=== PATIENT | female | born 1980 | race Caucasian/White ===

== ENCOUNTER 2016-09-19 09:13 | Inpatient (IN) ==
[2016-09-19] MEDS ORDERED: PEPCID IV PRN (22:00)
[2016-09-19] MEDS ORDERED: TYLENOL PO PRN (22:00)
[2016-09-19] MEDS ORDERED: ZOFRAN IV PRN (22:00)
[2016-09-19] MEDS ORDERED: STADOL IV PRN ×2 (22:00)
[2016-09-19] MEDS ORDERED: AMBIEN PO PRN (22:00)
[2016-09-19] MEDS ORDERED: PEPCID PO PRN (22:00)
[2016-09-19] MEDS ORDERED: BRETHINE SUBQ PRN (22:00)
[2016-09-19] MEDS ORDERED: PITOCIN 30 UNITS/LR 30 UNITS/500 ML IV.SOLN IV SCH (22:00)
[2016-09-19] MEDS ORDERED: AMPICILLIN 2 GM/NS 2 GM/100 ML IVPB IV ONE (22:00)
[2016-09-19] MEDS ORDERED: KEFZOL 1 GM/D5W 1 GM/50 ML IVPB IV PRN (22:00)
[2016-09-19] MEDS: LR 1,000 ML IV ONE (22:52)
[2016-09-19 23:15] LABS: URINE SOURCE VOIDED
[2016-09-19 23:15] LABS: MANUAL DIFF NEEDED? NO
[2016-09-19] MEDS: CYTOTEC PO ONE ×2 (23:25→23:26)
[2016-09-19 23:27] LABS: BILIRUBIN URINE NEGATIVE (NEGATIVE); BLOOD URINE NEGATIVE (NEGATIVE); CLARITY CLEAR (CLEAR); COLOR YELLOW; GLUCOSE URINE NEGATIVE (NEGATIVE); LEUKOCYTES URINE NEGATIVE (NEGATIVE); NITRITE URINE NEGATIVE (NEGATIVE); PROTEIN URINE NEGATIVE (NEGATIVE); UR AMPHETAMINES QUAL NONE DETECTED (NONE DETECT); UR BARBITUATES QUAL NONE DETECTED (NONE DETECT); UR BENZODIAZEPIN QUAL NONE DETECTED (NONE DETECT); UR CANNABINOIDS QUAL NONE DETECTED (NONE DETECT); UR COCAINE QUAL NONE DETECTED (NONE DETECT); UR MDMA QUAL NONE DETECTED (NONE DETECT); UR METHADONE QUAL NONE DETECTED (NONE DETECT); UR METHAMPHETAMINE QUAL NONE DETECTED (NONE DETECT); UR OPIATES QUAL NONE DETECTED (NONE DETECT); UR OXYCODONE QUAL NONE DETECTED (NONE DETECT); UR PCP QUAL NONE DETECTED (NONE DETECT); UR TCA QUAL NONE DETECTED (NONE DETECT); UROBILINOGEN URINE NORMAL
[2016-09-19 23:31] LABS: BASO% 0.2 % (0.0-0.8); EOS# 0.03 X1000 (0.0-0.7); EOS% 0.3 % (0.0-10.0); HEMATOCRIT 36.6 % (37.0-47.0); HEMOGLOBIN 12.5 g/dL (12.0-16.0); IMM GRAN# 0.05 X1000 (0.0-0.04); IMM GRAN% 0.4 % (0.0-0.5); LYMPH# 2.64 X1000 (1.2-3.4); LYMPH% 23.1 % (20.5-51.1); MCH 28.8 PG (27-31); MCHC 34.2 g/dL (33-37); MCV 84.3 FL (81-99); MONO# 1.05 X1000 (0.11-0.59); MONO% 9.2 % (1.7-9.3); MPV 12.5 FL (7.4-10.4); NEUT% 66.8 % (42.2-75.2); PLT 190 X1000 (130-400); RBC 4.34 XMIL (4.2-5.4)
[2016-09-20] MEDS: AMPICILLIN 1 GM/NS 1 GM/50 ML IVPB IV SCH ×3 (03:12→11:19)
[2016-09-20] MEDS: STADOL IV PRN ×2 (03:12→06:14)
[2016-09-20] MEDS ORDERED: CYTOTEC PO SCH (04:00)
[2016-09-20] MEDS ORDERED: FENTANYL-BUPIV-NS 2 MCG-0.1% 200 ML EPIDURAL PRN (07:32)
[2016-09-20] MEDS: LR 1,000 ML IV ONE (07:41)
[2016-09-20] MEDS ORDERED: NAROPIN 0.2% ONE (08:09)
[2016-09-20] MEDS ORDERED: MINERAL OIL PO ONE (09:54)
[2016-09-20] MEDS ORDERED: XYLOCAINE 1% INJ ONE (09:54)
[2016-09-20] MEDS ORDERED: PITOCIN IM PRN (12:22)
[2016-09-20] MEDS ORDERED: NORCO-10 PO PRN (12:22)
[2016-09-20] MEDS ORDERED: PITOCIN 20 UNITS/LR 20 UNITS/1,000 ML IV.SOLN IV SCH (12:22)
[2016-09-20] MEDS ORDERED: CYTOTEC PO PRN (12:22)
[2016-09-20] MEDS ORDERED: HYDROXYZINE IM PRN (12:22)
[2016-09-20] MEDS ORDERED: AMBIEN PO PRN (12:22)
[2016-09-20] MEDS ORDERED: PERI MEDS (DERMOPLAST/NUPERCAINAL/TUCKS) MISC PRN (12:22)
[2016-09-20] MEDS ORDERED: PITOCIN 30 UNITS/LR 30 UNITS/500 ML IV.SOLN IV ONE (12:22)
[2016-09-20] MEDS ORDERED: MINERAL OIL PO PRN (12:22)
[2016-09-20] MEDS ORDERED: HYDROXYZINE PO PRN (12:22)
[2016-09-20] MEDS ORDERED: BENADRYL IV PRN (12:22)
[2016-09-20] MEDS ORDERED: BENADRYL PO PRN (12:22)
[2016-09-20] MEDS ORDERED: XYLOCAINE-MPF 1% INJ PRN (12:22)
[2016-09-20] MEDS ORDERED: BOOSTRIX VACCINE IM ONE (12:22)
[2016-09-20] MEDS ORDERED: M-M-R II VACCINE SUBQ ONE (12:22)
--- NOTE | 2016-09-20 14:36 | OPERATIVE NOTE ---
PROCEDURE DATE: 09/20/2016 The patient underwent sterile controlled spontaneous vaginal delivery of a viable female , weighing 6 pounds 2 ounces with Apgars of 9 and 9. No nuchal, no dystocia, cord doubly clamped and cut. Infant handed off to the awaiting pediatric staff. Placenta delivered spontaneously and intact. Uterus firm with Pitocin and massage. Uterus, cervix, vagina explored. Right labial laceration re-approximated with [id number] stitch using 2-0 chromic and right vaginal laceration repair with 2-0 chromic in usual fashion. Hemostatic. Patient tolerated the procedure well. ESTIMATED BLOOD LOSS: 250 mL. cc: MD Piyush Noonan MD MTDD
[2016-09-20] MEDS: MOTRIN PO PRN (19:15)
[2016-09-20] MEDS: NORCO-5 PO PRN ×2 (19:15→22:11)
[2016-09-20] MEDS: PERICOLACE PO SCH (21:03)
[2016-09-21 06:39] LABS: HEMATOCRIT 34.5 % (37.0-47.0); HEMOGLOBIN 11.7 g/dL (12.0-16.0); MCH 28.9 PG (27-31); MCHC 33.9 g/dL (33-37); MCV 85.2 FL (81-99); MPV 12.2 FL (7.4-10.4); RBC 4.05 XMIL (4.2-5.4)
--- NOTE | 2016-09-21 09:48 | PROGRESS NOTE ---
DATE: 09/21/2016 SUBJECTIVE: She is day 1. Ms. Mckinney is without complaints. She is tolerating ambulation, voiding and p.o. without difficulty. OBJECTIVE: Vital Signs: Her vital signs are stable. She is afebrile. General: She is alert and cooperative, in no distress. Abdomen: On pertinent exam, her abdomen is slightly distended. Extremities: No cyanosis, clubbing or edema in her extremities. LABORATORY VALUES: Hemoglobin of 11.7. ASSESSMENT: Per day 1. PLAN: Routine care. Probable discharge in the morning. cc: MD Piyush More MD
[2016-09-21] MEDS: MOTRIN PO PRN ×2 (12:22→20:25)
[2016-09-21] MEDS: NORCO-5 PO PRN ×2 (12:23→20:25)
[2016-09-21] MEDS: PERICOLACE PO SCH (20:25)
[2016-09-21] MEDS ORDERED: EPIFOAM FOAM TOP PRN (20:29)
== END 2016-09-22 11:40 | disposition home or self-care (01) ==
LOC: P.LD 21:59 → P.WC 09-20 16:33
PROVIDERS: ADMIT Obstetrics & Gynecology; ATTEND Obstetrics & Gynecology